=== PATIENT | male | born 1980 | race Caucasian/White ===

== ENCOUNTER 2024-12-15 09:00 | Outpatient (CLI) | payer OTHER, SELFPAY ==
--- NOTE | 2024-12-15 09:15 | CRLHL7_ITS ---
For Patients: As a result of the Century Cures Act, medical imaging exams and procedure reports are released immediately into your electronic medical record. You may view this report before your referring provider. If you have questions, please contact your health care provider. INDICATION: Low back pain. TECHNIQUE: Noncontrast sagittal and axial T1, T2, and sagittal STIR sequences are provided. No comparisons. FINDINGS: The overall stature, alignment and intrinsic marrow signal of the lumbar spine is within normal limits. Conus is normal. L1-2: Minor posterior disc bulge results in no central canal or foraminal narrowing. L2-3: Mild broad-based posterior disc bulge results in no central canal or foraminal narrowing. L3-4: Minor disc bulge results in no central canal or foraminal narrowing. L4-5: Minor broad-based posterior disc bulge and facet arthropathy results in no significant central canal narrowing with minimal bilateral foraminal narrowing. L5-S1: Minor circumferential disc bulge and endplate osteophyte results in minimal bilateral foraminal narrowing. No central canal narrowing. IMPRESSION: 1. Minimal bilateral L4-5, L5-S1 foraminal narrowing. 2. Milder degenerative changes within the remainder of the lumbar spine as outlined above. Dictated by Jose Durham MD @ 12/15/2024 3:48:44 PM (Electronically Signed)
== END 2024-12-15 09:01 | disposition home or self-care (01) ==
LOC: MRI 09:01
PROVIDERS: PCP Nurse Practitioner Family; Visit Provider Nurse Practitioner Family
DX: M54.16 Radiculopathy, lumbar region (principal); M51.26 Other intervertebral disc displacement, lumbar region; M51.27 Other intervertebral disc displacement, lumbosacral region
CPT/HCPCS: 72148